=== PATIENT | male | born 1965 | race Caucasian/White ===

== ENCOUNTER 2024-08-02 20:29 | Emergency (ER) | payer OTHER ==
[2024-08-02] MEDS ORDERED: Prochlorperazine 10 MG/2 ML VIAL ONE (22:03)
[2024-08-02 22:33] LABS: #Basophils 0.04 10x3/uL (0.0-0.2); #Eosinphils 0.01 10x3/uL (0.0-0.5); #Monocytes 1.09 10x3/uL (0.0-1.1); #Neutrophils 12.53 10x3/uL (1.5-8.4); %Basophils 0.3 % (0.0-2.0); %Eosinophils 0.1 % (0.0-6.0); %Lymphocytes 3.8 % (18.0-47.0); %Monocytes 7.6 % (0.0-10.0); %Neutrophils 87.8 % (40.0-75.0); Hematocrit 45.8 % (38.8-50.0); Hemoglobin 15.6 g/dL (13.5-17.5); Mean Corpuscular HGB CONC 34.1 g/dL (32.0-36.0); Mean Corpuscular Hemoglobin 30.2 pg (27.0-33.0); Mean Corpuscular Volume 88.8 fL (81.2-95.1); Mean Platelet Volume 9.9 fL (7.4-10.4); Platelet Count 224 10x3/uL (150-450); RBC Distribution Width 12.8 % (11.5-14.5); Red Blood Cell (RBC) Count 5.16 10x6/uL (4.32-5.72); White Blood Cell (WBC) Count 14.3 10x3/uL (3.5-10.5)
[2024-08-02] MEDS ORDERED: Ketorolac Tromethamine 30 MG (1 mL) VIAL ONE (22:59)
[2024-08-02 23:05] LABS: ALT (SGPT) 37 U/L (8-55); AST (SGOT) 21 U/L (5-34); Albumin 3.6 g/dL (3.5-5.0); Alkaline Phosphatase 66 U/L (40-110); Anion Gap 13 mmol/L (10-20); BUN (Urea Nitrogen) 14 mg/dL (8.4-25.7); Bilirubin, Total 0.6 mg/dL (0.2-1.2); Calc. Creatinine Clearance 0 mL/min (70-130); Calcium 9.6 mg/dL (7.8-10.44); Carbon Dioxide 24 mmol/L (22-29); Chloride 102 mmol/L (98-107); Estimated GFR 79; Globulin 3.5 g/dL (2.4-3.5); Glucose 116 mg/dL (70-105); Potassium 4.4 mmol/L (3.5-5.1); Protein, Total 7.1 g/dL (6.0-8.3); Sodium 135 mmol/L (136-145)
[2024-08-02 23:24] LABS: Influenza A by NAA Not Detected (NotDetected); Influenza B by NAA Not Detected (NotDetected); SARS-CoV-2 NAA Rapid Test Not Detected (NotDetected)
[2024-08-02] MEDS ORDERED: fentaNYL 50 mcg/mL 1 mL Vial ONE (23:53)
[2024-08-03] MEDS ORDERED: cefTRIAXone (ROCEPHIN) 1 GM VIAL ONE ×2 (01:12→01:32)
[2024-08-03] MEDS ORDERED: Vancomycin 1 GM VIAL ONE (01:12)
[2024-08-03] MEDS ORDERED: ADMIXTURE FEE IVPB SCH (02:00)
[2024-08-03] MEDS ORDERED: ACYCLOVIR SODIUM IVPB SCH (02:00)
[2024-08-03] MEDS ORDERED: SODIUM CHLORIDE IVPB SCH (02:00)
[2024-08-03] MEDS ORDERED: Dexamethasone 10 MG/ML VIAL ONE (02:15)
[2024-08-03] MEDS ORDERED: diphenhydrAMINE 50 MG/ML VIAL ONE (02:32)
== END 2024-08-03 03:08 | disposition short-term general hospital (02) ==
LOC: CSHERS 20:29
DX: R51.9 Headache, unspecified (principal); R50.9 Fever, unspecified; Z87.891 Personal history of nicotine dependence
CPT/HCPCS: 0240U; 70450; 80053; 83605; 84145; 85025; 87040; J0133; J0696; J0780; J1100; J1200; J1885; J3010; J3370; J7050; 36415; 96365; 96366; 96367; 96375